=== PATIENT | male | born 1965 | race Caucasian/White ===

== ENCOUNTER 2022-08-20 07:29 | Emergency (ER) | payer MEDICARE, OTHER ==
[~2022-08-20] VITALS: Ht 167.6 cm; Wt 90.7 kg
[~2022-08-20 07:29] MED LIST: CEPHALEXIN500 M1 PO; GABAPENTIN300 MG/6 M PO; HYDROCODON-ACE1 EA11 PO; OMEPRAZOLE20 MG PO
[2022-08-20 08:14] VITALS: BP 161/104
== END 2022-08-20 08:15 | disposition left against medical advice (07) ==
LOC: ED 07:29
DX: M54.50 Low back pain, unspecified (principal); I10 Essential (primary) hypertension; Z53.29 Procedure and treatment not carried out because of patient's decision for other reasons; Z79.899 Other long term (current) drug therapy
CPT/HCPCS: 80053; 85025; 99283